=== PATIENT | male | born 1970 | race Caucasian/White ===

== ENCOUNTER 2018-03-24 18:39 | Emergency (ER) | payer SELFPAY ==
[2018-03-24 19:55] VITALS: BP 132/80; PULSE 82; RESP 16; TEMP 97.7; O2SAT 98
[2018-03-24] MEDS ORDERED: PENI500T PO (21:55)
--- NOTE | 2018-03-24 21:58 | PD ---
HPI Chief Complaint: Oral / Dental Pain or Problem Time Seen by Provider: 21:44 Travel History International Travel<30 days: No Contact w/Intl Traveler<30days: No Traveled to known affect area: No History of Present Illness HPI The patient is 47 years old. He complains of pain in the left upper premolar distribution. It has been somewhat bothersome for couple weeks however today became much more painful and swelling in the left upper face was noted. There is now constant moderate to severe pain which is worse with palpation. No fever. No diplopia or pain with range of motion of the eyes. PFSH Past Medical History COPD: Yes Diminished Hearing: No Genitourinary: Yes (BLADDER SURG) Immunizations Current: Yes Past Surgical History Other Surgery: Yes (LEFT THUMB, POSTERIOR NECK) Social History Alcohol Use: Yes Tobacco Use: Yes Substance Use: No Allergies-Medications (Allergen,Severity, Reaction): Coded Allergies: No Known Allergies (Unverified , 03/24/18) Review of Systems General / Constitutional: No: Fever Eyes: No: Diploplia HENT: Positive: Dental Difficulties, No: Headaches Cardiovascular: No: Chest Pain or Discomfort Physical Exam Narrative GENERAL: 47-year-old male well-nourished well-developed DENTITION: There is generalized state of dental decay. The left first upper premolar shows decay as well and is markedly tender to palpation there is an Savage 2 fracture present as well which appears old. The left maxillary face demonstrates minimal swelling and tenderness. Vital Signs Date Time Temp Pulse Resp B/P (MAP) Pulse Ox O2 Delivery O2 Flow Rate FiO2 03/24/18 19:55 97.7 82 16 132/80 (97) 98 HEAD: Atraumatic. Normocephalic. EYES: Pupils equal and round. No scleral icterus. No injection or drainage. ENT: No nasal bleeding or discharge. Mucous membranes pink and moist. CARDIOVASCULAR: Regular rate and rhythm. RESPIRATORY: No accessory muscle use. Clear to auscultation. Breath sounds equal bilaterally. GASTROINTESTINAL: Abdomen soft, non-tender, nondistended. Hepatic and splenic margins not palpable. MUSCULOSKELETAL: Extremities without clubbing, cyanosis, or edema. No obvious deformities. NEUROLOGICAL: Awake and alert. No obvious cranial nerve deficits. Motor grossly within normal limits. Five out of 5 muscle strength in the arms and legs. Normal speech. Data Data Last Documented VS Vital Signs Date Time Temp Pulse Resp B/P (MAP) Pulse Ox O2 Delivery O2 Flow Rate FiO2 03/24/18 19:55 97.7 82 16 132/80 (97) 98 Orders Orders Penicillin V Potassium (Veetids) (03/24/18 22:00) MDM Medical Decision Making Medical Screen Exam Complete: Yes Emergency Medical Condition: Yes Medical Record Reviewed: Yes Differential Diagnosis Dental abscess, dental caries, dental fracture Narrative Course Patient is a dental abscess with an Savage II fracture. Penicillin prescription. Follow-up with dentist. Patient understands that definitive treatment requires a dentist. Diagnosis Primary Impression: Dental abscess Additional Impression: Savage type II Referrals: Dentist 2 days Med/Other Pt SpecificInfo: Prescription(s) given Scripts Penicillin V Potassium (Penicillin V Potassium) 500 Mg Tab 500 MG PO Q8H for Infection for 10 Days, #30 TAB 0 Refills Prov: Uri Schreiber MD 03/24/18 Disposition: 01 DISCHARGE HOME Condition: Stable Uri Schreiber MD March 24, 2018 21:58
[2018-03-24] MEDS ORDERED: PENICILLIN V POTASSIUM 500 MG TAB PO ONE (22:00)
== END 2018-03-24 22:16 | disposition home or self-care (01) ==
LOC: NEPD 18:39
DX: K04.7 Periapical abscess without sinus (principal); Z72.0 Tobacco use
CPT/HCPCS: 99283